=== PATIENT | female | born 1980 | race Caucasian/White ===

== ENCOUNTER 2016-05-28 18:19 | Emergency (ER) | payer OTHER ==
[~2016-05-28] VITALS: Ht 162.6 cm; Wt 63.0 kg
[~2016-05-28 18:19] MED LIST: ALBU1.25 INHALATION; ALBU8.5H4 INHALATION; BECL8.7A6 IH; DIPH50C PO; LORA10CA PO; PRE20 PO
[2016-05-28 18:23] VITALS: BP 125/80; PULSE 87; RESP 18; O2SAT 97
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
[2016-05-28 19:24] LABS: Mean Corpuscular Hemoglobin 30.7 pg (27.0-35.0); Mean Corpuscular Volume 89.3 fL (81-100)
--- NOTE | 2016-05-28 21:11 | DRSVH ---
PROCEDURE: US OB<14 WKS+OB TRANSVAG INDICATIONS: vag bleeding preg hcg 1500 OUTSIDE/PRIOR DATING DATA: Last menstrual period (LMP): Unknown. LMP-based estimated date of delivery (SERAFIN): Unknown. First dating scan (date and location): This examination. Estimated date of delivery (SERAFIN) from first dating scan: 01/26/17 although by gestational sac only, p lease see below. TECHNIQUE: Real-time scanning was performed of the fetus and maternal pelvic organs, with image documentation. Endovaginal scanning was also performed to better visualize the fetus and maternal ovaries. COMPARISON: None. 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 5 by 4 x 4 millimeter perigestational hematoma. Nonspecific 3 x 1 x 2 mm endometrial cyst, as before. There i s an anterior fibroid measuring 8 x 8 x 10 mm. Measurement variability in dating: +/- 4 weeks by LMP, +/- 7 days by mean sac diameter (use before 6 weeks gestation if crown-rump length not able to be measured), +/- 5 days by crown-rump length (6-12 weeks gestation). Maternal organs: Ovaries unremarkable except for a presumed left-sided corpus luteum measuring 2.1 c m. Limited images through the kidneys demonstrate no hydronephrosis. IMPRESSION: Probable intrauterine gestational sac however no pole identified. Differential includes early i ntrauterine , best spontaneous and cannot entirely exclude ectopic . Recom mend clinical correlation with serial beta-hCG values, and repeat ultrasound in one week Uterine fibroid. Presumed connie-gestational hematoma. Dictated by: Jerad Stone M.D. on 05/28/2016 at 21:06 Approved by: Jerad Stone M.D. on 05/28/2016 at 21:09
[2016-05-28 21:30] VITALS: BP 122/78; PULSE 82; RESP 16; O2SAT 98
== END 2016-05-28 21:30 | disposition home or self-care (01) ==
LOC: SED 18:19
DX: O20.9 Hemorrhage in early pregnancy, unspecified (principal); J45.909 Unspecified asthma, uncomplicated; Z3A.01 Less than 8 weeks gestation of pregnancy; Z87.891 Personal history of nicotine dependence

== ENCOUNTER 2016-05-30 15:38 | Emergency (ER) | payer OTHER ==
[~2016-05-30] VITALS: Ht 162.6 cm; Wt 63.6 kg
[2016-05-30 15:52] VITALS: BP 116/76; PULSE 71; RESP 16; O2SAT 97
[2016-05-30 16:28] LABS: Mean Corpuscular Hemoglobin 29.9 pg (27.0-35.0); Mean Corpuscular Volume 90.2 fL (81-100)
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
== END 2016-05-30 18:22 | disposition home or self-care (01) ==
LOC: SED 15:38
DX: O03.9 Complete or unspecified spontaneous abortion without complication (principal); J45.909 Unspecified asthma, uncomplicated; Z87.891 Personal history of nicotine dependence; Z3A.01 Less than 8 weeks gestation of pregnancy

== ENCOUNTER 2016-06-04 16:30 | Emergency (ER) | payer OTHER ==
[~2016-06-04] VITALS: Ht 162.6 cm; Wt 63.6 kg
[2016-06-04 16:42] VITALS: BP 114/71; PULSE 86; RESP 16; O2SAT 96
[2016-06-04 17:31] LABS: BASOPHILS % (AUTO) 0.6 % (0-3); EOSINOPHILS % (AUTO) 3.9 % (0-5); MONOCYTES % (AUTO) 7.1 % (4-12); Mean Corpuscular Hemoglobin 30.1 pg (27.0-35.0); Mean Corpuscular Volume 90.8 fL (81-100); NEUTROPHILS % (AUTO) 63.6 % (40-74); Platelet Count 305 bil/L (150-400)
--- NOTE | 2016-06-04 21:19 | ED.REPORT ---
HPI-Preg Under 20 Weeks Date of Service Jun 04, 2016 ED Provider: Elia Andres MD Patient is a 35 year old female who is currently in the process of having a miscarriage presents to the ED complaining pelvic cramping and vaginal bleeding that have been increasing in severity over the past week. Patient reports passing large blood clots and what appears to be tissue. Patient states that she went through 3x heavy pads today, but she is not bleeding more than during a typical period. She reports severe cramping pain at her lower abdomen and in her back. Today she also started feeling lightheaded and nauseated. She becomes dizzy when she stands up. Patient was previously confirmed to be via ultrasound at [facility] several weeks ago. She would be approximately 7 weeks currently. Patient was seen in the ED on 05/28 and 05/30 for this complaint, with ultrasound showing a intrauterine sac without pole. She was also found to have declining hCGs during these visits and was believed to be in the process of having a miscarriage. Patient had an appointment at [facility] yesterday for a serial hCGs, but she missed the appointment because she was too upset about her miscarriage. Nursing Notes Stated Complaint: BLEEDING,CRAMPING, Chief Complaint: Female Abdominal Pain Nursing Notes Reviewed: Yes Allergies: Coded Allergies: No Known Allergies (Unverified , 06/04/16) Scheduled Beclomethasone Dipropionate (Qvar) 8.7 Gm Aer.w.adap 8.7 GM IH BID Diphenhydramine Hcl (Benadryl) 50 Mg Capsule 50 MG PO Q6H Loratadine (Claritin) 10 Mg Capsule 10 MG PO DAILY Prednisone (PredniSONE) 20 Mg Tablet 20 MG PO DAILY Prednisone (PredniSONE) 20 Mg Tablet 60 MG PO DAILY Scheduled PRN Albuterol HFA (Albuterol HFA) 8.5 Gm Hfa.aer.ad 1 PUFF INHALATION Q4H PRN PRN For Wheezing Albuterol Neb Soln (Albuterol Neb Soln) 1.25 Mg/3 Ml Vial.neb 1.25 MG INHALATION Q4H PRN PRN For Shortness of Breath Ondansetron ODT (Ondansetron ODT) 8 Mg Tab.rapdis 4-8 MG PO QID PRN PRN For Nausea General Time Seen by Provider: 21:22 Chief Complaint Abdominal pain, Vaginal bleeding Hx Obtained From: Patient Arrived By: Walk-in Onset Occurred: 1 week ago Past Medical History Past Medical History Reports: Asthma Past Surgical History denies Smoking History Former Smoker Social History Alcohol Use: "Social" Drug Use: Denies drug use Occupation work at [employer] to [employer]. lives by self 05/30/2016 Ambulatory Status Independent Review of Systems GI: Reports: Nausea, Denies: Vomiting Female: Reports: Pelvic pain, , Vaginal bleeding - abnl Neurologic: Reports: Dizziness, Lightheaded Complete sys rev & neg: except as marked. Physical Exam Initial Vital Signs Vital Signs (First) Date Time Temp Pulse Resp B/P Pulse Ox O2 Delivery O2 Flow Rate FiO2 06/04/16 16:42 36.8 86 16 114/71 96 Room Air Initial VS: Reviewed, Vital signs abnormal Head / Eyes: Atraumatic, Normocephalic, PERRL ENT: Conjunctiva normal, No scleral icterus Neck: Supple, Full range of motion Respiratory: Breath sounds normal, Clear to auscultation, No respiratory distress Cardiovascular: Regular rate & rhythm, Heart sounds normal Extremities: Vascular intact, Neuro intact Skin: Warm, Dry, No cyanosis Neurologic: Alert, Oriented, Nonfocal Psychiatric: Mood/affect normal, Behavior normal, Normal thought content General/Constitutional: Awake, Alert, No acute distress Appearance / Presentation: Negative: Pale Abdomen: Soft, No guarding, No rebound Tenderness/Guarding/Rebound: Positive: Tender LLQ... Female Genitourinary: Exam deferred : Exam deferred Interpretation & Diagnostics Lab Results Interpretation Result Diagram: 06/04/16 1718 Test 06/04/16 17:18 06/04/16 21:02 White Blood Count 9.7th/mm3 (3.8-10.1) Red Blood Count 5.01mil/mm3 (3.90-5.20) Hemoglobin 15.1g/dL (12.0-15.6) Hematocrit 45.5% (35.0-46.0) Mean Corpuscular Volume 90.8fL (81-100) Mean Corpuscular Hemoglobin 30.1pg (27.0-35.0) Mean Corpuscular Hemoglobin Concent 33.2% (32.0-37.0) Red Cell Distribution Width 12.9% (12.3-15.4) Platelet Count 305bil/L (150-400) Neutrophils (%) (Auto) 63.6% (40-74) Lymphocytes (%) (Auto) 24.6% (14-46) Monocytes (%) (Auto) 7.1% (4-12) Eosinophils (%) (Auto) 3.9% (0-5) Basophils (%) (Auto) 0.6% (0-3) HCG Beta Subunit 13.99mIU/mL Hold Quijano Top Tube Received (Received) Hold Urine Received (Received) Lab values outside NL range: no clinical significance. Lab Results Interpretation: No anemia, beta hCG 14 consistent with completed miscarriage US Focused OB CONCLUSION: Small uterine fibroid, otherwise normal. No evidence of retained products of conceptions. Radiologist: Nishant Garcia MD 06/04/2016 - 11:30:54 PM PST Exam Performed by: [facility] Exam Type: Diagnostic Clinical Category: Symptom-based Exam Interpreted by: Radiologist Indication: Pelvic pain, Vaginal bleeding Re-Eval/Medical Decision Med Decision/Clinical Course 35-year-old female with continued cramping and bleeding. H&H 15/45, no evidence of blood loss anemia. She was hydrated with liters saline. Ultrasound was done which shows an empty uterus. Beta hCG and ultrasound are consistent with completed miscarriage. She will be discharged home with Percocet and Zofran. Follow up with her primary doctor in a day or 2 if the bleeding and pain persists. Source of Hx: Old records Re-Evaluation/Progress : Time of Eval: 00:07 Patient Status: Condition improved Re-Evaluation/Progress Note: Rechecked the patient, who was informed that there were no retained products of conception of US. She should follow-up with her doctor, espeically if she continues to bleed. Patient previously had an IUD and was suggested to start using control again. Patient was also thought to have some puffiness under eyes. Patient believes this is due to crying. She does not have any known allergies to medications. Patient understands and agrees with the plan to be discharged home. Discharge instructions and follow-up discussed. All questions were addressed. Return to the ED warnings given. Counseled Regarding: Diagnosis, Lab results, Need for follow-up, When/why to return to ED Discharge & Departure Primary Impression: Miscarriage Disposition: Home Discharge Condition All VS Reviewed: Yes Condition: Stable Patient Instructions: Spontaneous Miscarriage (ED) Additional Instructions: Your hCG hormone and ultrasound are both indicative of a completed miscarriage. The cramping and bleeding will taper off over the next few days. Oxycodone/APAP 5/325, one or 2 pills every 4-6 hours as needed for severe pain, #10 dispensed. Ondansetron (Zofran) 4 mg ODT, 1 dissolved orally 4 times a day as needed for nausea and vomiting, #4 dispensed #10 prescription written. See your regular doctor if the bleeding and cramping do not taper off in the next 2 or 3 days. [facility] Divine Attestation Portions of this note were transcribed by Frida Pacheco. I, Dr. Andres personally performed the history, physical exam and medical decision-making; I reviewed and confirmed the accuracy of the information in the transcribed note. Signed by: Divine Quigley, 06/05/2016 0027 copies to: [facility] Howard L MD Jun 04, 2016 21:19 Frida Pacheco Jun 04, 2016 21:33
[2016-06-04] MEDS ORDERED: 0.9% Sodium Chloride 1,000 ML IV ONE (21:27)
[2016-06-04] MEDS ORDERED: Ondansetron 2 mg/mL 2 mL Inj IV PRN (21:30)
[2016-06-04] MEDS: HYDROmorphone 0.5 mg/0.5 mL iSecure Syringe IVPUSH PRN ×2 (21:59→22:45)
[2016-06-05] MEDS ORDERED: _Ondansetron ODT 4 mg Tablet PO PRN (00:10)
[2016-06-05] MEDS ORDERED: _oxyCODONE/APAP 5-325 mg Tablet PO PRN (00:10)
[2016-06-05] MEDS ORDERED: ONDA8TAB10 PO (00:21)
[2016-06-05 00:45] VITALS: BP 136/70; PULSE 88; RESP 18; O2SAT 96
--- NOTE | 2016-06-05 08:54 | DRSVH ---
PROCEDURE: US PELVIC SONOGRAM + TRANSVAGINAL SONOGRAM INDICATIONS: retained POC? TECHNIQUE: Real-time scanning was performed of the pelvic organs, with image documentation. Additional endovagi nal scanning was necessary due to incomplete visualization of the adnexal and endometrial structures by transabdominal scanning. COMPARISON: None. FINDINGS: (orthogonal measurements) Uterus size: 9.4 x 5.0 x 6.2 Endometrium thickness: 5.0 mm Right ovary size: 2.9 x 2.1 x 2.4 Left ovary size: 3.2 x 1.7 x 2.5 Transabdominal scanning: Limited scanning through the kidneys shows no hydronephrosis. No pathologi c free abdominal or pelvic fluid. Endovaginal scanning: Uterus: Uterus is normal in size and appearance. Endometrium is within normal physiologic limits. Small anterior intramural fibroid measuring roughly 1 cm. Ovaries: Within normal physiologic limits. IMPRESSION: No sonographic suggestion of retained products of conception. Dictated by: Ryan Cross [facility] Interpreted: Genesis Torres MD on 06/05/2016 at 8:52 Transcribed by: DOMONIQUE on 06/05/2016 at 8:53 Approved by: Genesis Torres MD, PhD on 06/05/2016 at 17:14
[2016-06-06] MEDS ORDERED: OXYC1TAB24 PO (14:49)
[2016-06-06] MEDS ORDERED: METO-301 PO (17:59)
== END 2016-06-05 00:47 | disposition home or self-care (01) ==
LOC: SED 16:30
DX: O03.9 Complete or unspecified spontaneous abortion without complication (principal); O26.891 Other specified pregnancy related conditions, first trimester; R42 Dizziness and giddiness; J45.909 Unspecified asthma, uncomplicated; Z3A.01 Less than 8 weeks gestation of pregnancy; Z87.891 Personal history of nicotine dependence
CPT/HCPCS: 36415; 76830; 76856; 84702; 85025; 96361; 96374; 96375; 96376; 99285; J1170; J2405; J7030

== ENCOUNTER 2016-06-06 14:33 | Emergency (ER) | payer OTHER ==
[~2016-06-06] VITALS: Ht 162.6 cm; Wt 62.7 kg
[~2016-06-06 14:33] MED LIST changes: +ONDA8TAB10 PO
[2016-06-06 14:41] VITALS: BP 106/50; PULSE 98; RESP 18; O2SAT 96
[2016-06-06] MEDS ORDERED: OXYC1TAB24 PO (14:49)
--- NOTE | 2016-06-06 15:47 | ED.REPORT ---
HPI-General Illness Date of Service Jun 06, 2016 ED Provider: Michael Garcia MD This is a 35 year old female presenting to the emergency department due to headache that began yesterday. Associated symptoms include nausea, vomiting, diffuse myalgias specifically leg pain, back pain, neck pain, substernal chest pain. Denies abdominal pain, fever, dysuria, or vaginal bleeding. Pt visited the ED 3 days ago due to miscarriage and had similar symptoms. She was discharged with Percocet for diffuse pain which has provided pain relief. Today pt reports increased nausea, decreased PO intake, and worsened headache. Nursing Notes Stated Complaint: NAUSEA,VOMITING,DIZZY Chief Complaint: Chest Pain-Non Cardiac Nature Nursing Notes Reviewed: Yes Allergies: Coded Allergies: No Known Allergies (Unverified , 06/04/16) Scheduled Beclomethasone Dipropionate (Qvar) 8.7 Gm Aer.w.adap 8.7 GM IH BID Scheduled PRN Albuterol HFA (Albuterol HFA) 8.5 Gm Hfa.aer.ad 1 PUFF INHALATION Q4H PRN PRN For Wheezing Albuterol Neb Soln (Albuterol Neb Soln) 1.25 Mg/3 Ml Vial.neb 1.25 MG INHALATION Q4H PRN PRN For Shortness of Breath Metoclopramide (Reglan) 10 Mg Tablet 10 MG PO QID PRN PRN For Nausea Ondansetron ODT (Ondansetron ODT) 8 Mg Tab.rapdis 4-8 MG PO QID PRN PRN For Nausea oxyCODONE-Acetaminophen 5-325 mg (oxyCODONE-Acetaminophen 5-325 mg) 1 Each Tablet 1 TAB PO Q6H PRN PRN For Pain General Time Seen by MD: 15:44 Chief Complaint Not feeling well Hx Obtained From: Patient Arrived By: Walk-in Sudden in Onset?: Yes Symptom Duration: Since onset Severity: Current: Moderate Pertinent Negative: Pt denies other symptoms Recent Healthcare: No recent hospitalization, Recent doctor visit Similar Sx Previous: No Past Medical History Past Medical History Reports: Asthma Past Surgical History denies Smoking History Former Smoker Social History Alcohol Use: "Social" Drug Use: Denies drug use Occupation work at [employer] to [employer]. lives by self 05/30/2016 Ambulatory Status Independent Review of Systems Full Review of Systems Constitutional: Denies: Chills, Fever Respiratory: Denies: Non-productive cough, Shortness of breath Cardiovascular: Reports: Chest pain GI: Reports: Nausea, Vomiting, Denies: Abdominal pain, Constipation, Diarrhea, Hematemesis, Hematochezia Musculoskeletal: Reports: Back pain, Extremity pain, Neck pain Neurologic: Reports: Headache, Denies: Change LOC, Confusion, Dizziness, Lightheaded, Numbness, Weakness Complete sys rev & neg: except as marked. Physical Exam Vital Signs Vital Signs Date Time Temp Pulse Resp B/P Pulse Ox O2 Delivery O2 Flow Rate FiO2 06/06/16 14:41 37.5 98 18 106/50 96 Room Air Initial VS: Reviewed General/Constitutional: Well-developed, Well-nourished Head / Eyes: Atraumatic, Normocephalic, PERRL ENT: Mucous membranes moist, Conjunctiva normal, No scleral icterus Neck: Supple, Non-tender, Full range of motion Respiratory: Breath sounds normal, Clear to auscultation, No respiratory distress Cardiovascular: Regular rate & rhythm, Heart sounds normal, Intact distal pulses Extremities: Vascular intact, Neuro intact, No swelling, No tenderness Skin: Warm, Dry, No cyanosis Neurologic: Alert, Oriented, Nonfocal Psychiatric: Mood/affect normal, Behavior normal, Normal thought content Abdomen: No guarding, No rebound Tenderness/Guarding/Rebound: Positive: Tender diffuse Female Genitourinary: Foreclosure Home Inspector present, Atraumatic, External genitalia NL, No bleeding, No discharge, No cervical motion tend, Os closed, No adnexal mass Interpretation & Diagnostics Lab Results Interpretation Result Diagram: 06/06/16 1630 06/06/16 1630 Test 06/06/16 16:30 06/06/16 17:00 06/06/16 17:58 White Blood Count 10.7th/mm3 (3.8-10.1) Red Blood Count 4.91mil/mm3 (3.90-5.20) Hemoglobin 14.8g/dL (12.0-15.6) Hematocrit 43.2% (35.0-46.0) Mean Corpuscular Volume 88.0fL (81-100) Mean Corpuscular Hemoglobin 30.1pg (27.0-35.0) Mean Corpuscular Hemoglobin Concent 34.3% (32.0-37.0) Red Cell Distribution Width 12.4% (12.3-15.4) Platelet Count 227bil/L (150-400) Neutrophils (%) (Auto) 92.7% (40-74) Lymphocytes (%) (Auto) 4.2% (14-46) Monocytes (%) (Auto) 2.0% (4-12) Eosinophils (%) (Auto) 0.7% (0-5) Basophils (%) (Auto) 0.1% (0-3) Sodium Level 134mEq/L (134-144) Potassium Level 3.8mEq/L (3.5-5.2) Chloride Level 101mEq/L (97-108) Carbon Dioxide Level 20mmol/L (18-29) Blood Urea Nitrogen 14mg/dL (6-20) Creatinine 0.44mg/dL (0.57-1.00) Estimat Glomerular Filtration Rate 233mL/min (>59) Glucose Level 99mg/dL (60-99) Calcium Level 8.3mg/dL (8.5-10.1) Magnesium Level 1.8mg/dL (1.6-2.6) Total Bilirubin 0.4mg/dL (0.0-1.2) Aspartate Amino Transf (AST/SGOT) 15U/L (0-50) Alanine Aminotransferase (ALT/SGPT) 12U/L (0-32) Alkaline Phosphatase 50U/L (25-150) Total Protein 6.6g/dL (6.4-8.4) Albumin 4.0g/dL (3.4-5.0) Lipase 19U/L (13-60) HCG Beta Subunit 5.30mIU/mL X-Ray Chest Interpretation Chest Xray Interpretation: IMPRESSION: No acute or active disease is seen in the chest. Cause of chest pain is not identified. Dictated by: Shane Gonzales M.D. on 06/06/2016 at 17:50 Approved by: Shane Gonzales M.D. on 06/06/2016 at 17:51 Interpretation / Wet Read by: Interpret - Radiologist Re-Eval/Medical Decision Med Decision/Clinical Course 35-year-old female who is one-week status post miscarriage presenting with nausea. She also reports headache. Her headache resolved with Toradol. Her nausea resolved with Zofran. Labs are normal. Vital signs stable. Abdominal exam was normal. She has no cervical motion tenderness or adnexal tenderness. There is no active bleeding or os is closed. She had a pelvic ultrasound one week ago with no retained products of conception. Given patient is now feeling better and normal workup as above, patient was discharged home with prescription for Reglan. Return precautions. Counseled Regarding: Diagnosis, Lab results, Need for follow-up, When/why to return to ED Discharge & Departure Primary Impression: Nausea Disposition: Home Discharge Condition All VS Reviewed: Yes Condition: Stable Patient Instructions: Acute Nausea and Vomiting (ED) Additional Instructions: Your labs and x-ray were reassuring today. Take Reglan as prescribed for nausea control. Follow-up with your primary care provider. Return to the emergency department for any new or worsening symptoms such as fevers, abdominal pain, or vomiting. Referrals: [facility] (PCP) Scribe Attestation Portions of this note were transcribed by Gerard Carmen. I, Dr. Garcia personally performed the history, physical exam and medical decision-making; I reviewed and confirmed the accuracy of the information in the transcribed note. Signed by: aline Alva. 06/06/2016, 15:00. Michael Garcia MD Jun 06, 2016 15:47 GERARD CARMEN Jun 06, 2016 15:56
[2016-06-06] MEDS ORDERED: 0.9% Sodium Chloride 1,000 ML IV ONE (16:11)
[2016-06-06] MEDS ORDERED: Ondansetron 2 mg/mL 2 mL Inj IVPUSH PRN (16:15)
[2016-06-06 16:40] LABS: BASOPHILS % (AUTO) 0.1 % (0-3); EOSINOPHILS % (AUTO) 0.7 % (0-5); Mean Corpuscular Hemoglobin 30.1 pg (27.0-35.0); NEUTROPHILS % (AUTO) 92.7 % (40-74); Platelet Count 227 bil/L (150-400)
[2016-06-06 17:15] LABS: Magnesium 1.8 mg/dL (1.6-2.6)
--- NOTE | 2016-06-06 17:52 | DRSVH ---
PROCEDURE: X-RAY CHEST ONE VIEW, PORTABLE ([id number]) INDICATIONS: chest pain TECHNIQUE: One view of the chest was acquired. COMPARISON: [facility], CR, XR CHEST 2VW, 07/03/2015, 3:49. FINDINGS: Surgical changes and devices: None. Lungs and pleura: No pleural effusions or pneumothorax. Lungs are clear. Mediastinum: Mediastinal contours appear normal. Heart size is normal. Bones and chest wall: No suspicious bony lesions. Overlying soft tissues appear unremarkable. IMPRESSION: No acute or active disease is seen in the chest. Cause of chest pain is not identified. Dictated by: Shane Gonzales M.D. on 06/06/2016 at 17:50 Approved by: Shane Gonzales M.D. on 06/06/2016 at 17:51
[2016-06-06] MEDS ORDERED: METO-301 PO (17:59)
[2016-06-06 18:07] LABS: APPEARANCE,URINE HAZY (CLEAR,HAZY); COLOR,URINE YELLOW (YELLOW); OCCULT BLOOD,URINE TRACE (NEGATIVE); PH,URINE 7.5 (5.0-8.0); UROBILINOGEN,URINE NORMAL (NORMAL)
== END 2016-06-06 18:15 | disposition home or self-care (01) ==
LOC: EDUNIT# 14:33 → SED 14:33 → EDBD 14:33 → SED 18:15
DX: R11.0 Nausea (principal); J45.909 Unspecified asthma, uncomplicated; Z87.891 Personal history of nicotine dependence
CPT/HCPCS: 36415; 71010; 80053; 81000; 83690; 83735; 84702; 85025; 93005; 96361; 96374; 96375; 99285; J2270; J2405; J7030